=== PATIENT | female | born 1985 | race Two or more races ===

== ENCOUNTER 2017-05-13 21:10 | Inpatient (IN) | payer OTHER, MEDICAID ==
[~2017-05-13] VITALS: Ht 157.5 cm; Wt 83.9 kg
[2017-05-13] MEDS ORDERED: LACT. RINGERS/OXYTOCIN 20UNITS 1,000 ML IV SCH (21:18)
[2017-05-13] MEDS ORDERED: NALBUPHINE HCL 10 MG/1ml INJECTION IV PRN (21:30)
[2017-05-13] MEDS ORDERED: WITCH HAZEL-GLYCERIN PAD TOP PRN (21:30)
[2017-05-13] MEDS ORDERED: PHISODERM TOP SOLN 240ML BTL TOP PRN (21:30)
[2017-05-13] MEDS ORDERED: LIDOCAINE 2%HCL (LOCAL ANESTH.) INJ 20ML MDV IJ PRN (21:30)
[2017-05-13] MEDS ORDERED: DERMOPLAST 60ML BOTTLE TOP PRN (21:30)
[2017-05-13] MEDS ORDERED: METHYLERGONOVINE MALEATE 0.2 MG/ML AMP IM PRN (21:30)
[2017-05-13 22:38] LABS: Albumin 2.3 g/dL (3.4-5.0); BUN/Creatinine Ratio 16.1; Calcium 8.8 mg/dL (8.5-10.1); Potassium 3.8 mmol/L (3.5-5.1)
[2017-05-13 22:41] LABS: Bilirubin, Total 0.2 mg/dL (0.2-1.0); Total Protein 6.5 g/dL (6.4-8.2)
[2017-05-13 22:41] LABS: Alcohol, Urine < 3.0 mg/dL (0-5); Amphetamine Screen, Urine NEGATIVE (NEGATIVE); Barbiturate Scree,Urine NEGATIVE (NEGATIVE); Benzodiazephine Screen, Urine NEGATIVE (NEGATIVE); Cannabinoid Screen, Urine NEGATIVE (NEGATIVE); Cocaine Screen, Urine NEGATIVE (NEGATIVE); Opiate Scree,Urine NEGATIVE (NEGATIVE); Phencyclidine Screen, Urine NEGATIVE (NEGATIVE); Urine Bacteria MANY /hpf (None Seen); Urine Blood Negative /uL (Negative); Urine Mucus FEW (None Seen); Urine Specific Gravity 1.019 (1.001-1.035); Urine WBC 7 /hpf (0 - 5)
[2017-05-13 22:51] LABS: Basophils # (auto) 0.1 uL; Eosinophils # (auto) 0.1 uL; Mean Corpuscular Hemoglobin 25.6 pg (28.0-32.0); Mean Corpuscular Volume 78.2 fL (80.0-100.0)
[2017-05-13 22:53] LABS: Basophils % (auto) 0.4 % (0.0-2.0); Eosinophils % (auto) 0.8 % (0.0-7.0); Hematocrit 29.3 % (36.0-46.0); Hemoglobin 9.6 g/dL (12.2-16.2); Lymphocytes # (auto) 1.5 uL; Lymphocytes % (auto) 12.5 % (10.0-50.0); Mean Corpuscular Hgb Conc. 32.7 g/dL (32.0-36.0); Monocytes # (auto) 0.8 uL; Monocytes % (auto) 6.2 % (0.0-12.0); Neutrophils # (auto) 9.7 uL; Neutrophils % (auto) 80.1 % (37.0-80.0); Nucleated Red Blood Cells % 0.1 %; Platelet Count (auto) 303 10^3/uL (140-450); Red Blood Cells 3.74 10^6/uL (4.0-5.20); White Blood Cell 12.1 10^3/uL (4.4-10.8)
[2017-05-13] MEDS ORDERED: PREN-153 OR (23:03)
[2017-05-13 23:07] LABS: INR 0.91 (0.9-1.15); Partial Thromboplastin Time 27.5 sec (22.64-33.71); Prothrombin Time 9.9 sec (9.37-12.3)
[2017-05-14] MEDS ORDERED: ALUM & MAG HYDROX-SIMETH LIQ(MAALOX) 30 ML ONE (03:29)
[2017-05-14] MEDS ORDERED: ALUM & MAG HYDROX-SIMETH LIQ(MAALOX) 30 ML PO PRN (03:30)
[2017-05-14] MEDS ORDERED: PROMETHAZINE HCL 25 MG/ML 1ML ONE (05:37)
[2017-05-14] MEDS ORDERED: BUTORPHANOL TARTRATE 2 MG/1 ML VIAL ONE (05:37)
[2017-05-14] MEDS: LACTATED RINGER'S 1,000 ML IV SCH ×3 (06:37→21:18)
[2017-05-14] MEDS ORDERED: PROMETHAZINE HCL 25 MG/ML 1ML IV PRN (06:45)
[2017-05-14] MEDS ORDERED: LACT. RINGERS/OXYTOCIN 20UNITS 1,000 ML IV SCH (11:48)
[2017-05-14] MEDS ORDERED: TERBUTALINE SULFATE 1 MG/ML 1ML VIAL SC ONE (12:00)
[2017-05-14] MEDS ORDERED: ePHEDrine SULFATE 50 MG/ML AMP IV ONE (12:15)
[2017-05-14] MEDS ORDERED: fentaNYL W ROPIVACAINE 150 ML EPI SCH (12:15)
[2017-05-14] MEDS ORDERED: LIDOCAINE HCL 2 %PF INJ 10ML AMP IJ ONE (12:15)
[2017-05-14] MEDS ORDERED: NALOXONE HCL 0.4 MG/ML VIAL IV ONE (12:15)
[2017-05-14] MEDS ORDERED: fentaNYL CITRATE 100 MCG/2 ML VL IV ONE (12:15)
[2017-05-14] MEDS: IBUPROFEN 600 MG TAB PO PRN (20:30)
[2017-05-14 23:30] VITALS: BP 118/51
[2017-05-15] MEDS: IBUPROFEN 600 MG TAB PO PRN ×5 (01:00→23:30)
[2017-05-15 03:30] VITALS: BP 115/52
[2017-05-15] MEDS ORDERED: ACETAMINOPHEN 325 MG TAB PO ONE (04:54)
[2017-05-15] MEDS: LACTATED RINGER'S 1,000 ML IV SCH ×2 (04:55→13:18)
[2017-05-15] MEDS ORDERED: ACETAMINOPHEN 325 MG TAB PO PRN (05:00)
[2017-05-15 05:06] LABS: RPR Non Reactive (Non Reactive)
[2017-05-15 08:00] VITALS: BP 101/52
[2017-05-15] MEDS ORDERED: DOCUSATE CALCIUM 240 MG CAP PO SCH (10:00)
[2017-05-15 12:15] VITALS: BP 115/62
[2017-05-15 16:30] VITALS: BP 108/59
[2017-05-15 19:15] VITALS: BP 116/60
[2017-05-15 23:00] VITALS: BP 127/71
[2017-05-16 03:30] VITALS: BP 126/69
[2017-05-16 08:00] VITALS: BP 122/78
== END 2017-05-16 09:40 | disposition home or self-care (01) | DRG 775 ==
LOC: LDRP 21:10
PROVIDERS: ADMIT Specialist; ATTEND Specialist
PROC: 10E0XZZ Delivery of Products of Conception, External Approach (ICD-10-PCS; principal; 2017-05-14)
PROC: 10907ZC Drainage of Amniotic Fluid, Therapeutic from Products of Conception, Via Natural or Artificial Opening (ICD-10-PCS; 2017-05-14)
PROC: 0HQ9XZZ Repair Perineum Skin, External Approach (ICD-10-PCS; 2017-05-14)
PROC: 00HU33Z Insertion of Infusion Device into Spinal Canal, Percutaneous Approach (ICD-10-PCS; 2017-05-14)
PROC: 3E0R3BZ Introduction of Anesthetic Agent into Spinal Canal, Percutaneous Approach (ICD-10-PCS; 2017-05-14)
DX: O48.0 Post-term pregnancy (principal); O70.0 First degree perineal laceration during delivery; Z37.0 Single live birth; Z3A.40 40 weeks gestation of pregnancy
CPT/HCPCS: 36415; 59025; 59612; 62282; 80053; 80307; 81001; 85025; 85610; 85730; 86592; 86850; 86900; 86901; 94760; 96365; 96366; 96375; J2590; J3010

== ENCOUNTER 2017-08-28 19:02 | Emergency (ER) | payer MEDICAID, OTHER ==
[~2017-08-28] VITALS: Ht 165.1 cm; Wt 63.5 kg
[~2017-08-28 19:02] MED LIST: PREN-153 OR
[2017-08-28 19:05] VITALS: BP 134/72
== END 2017-08-28 19:40 | disposition left against medical advice (07) ==
LOC: EDBD 19:02 → ER 19:04
DX: S61.452A Open bite of left hand, initial encounter (principal); S61.451A Open bite of right hand, initial encounter; Z53.21 Procedure and treatment not carried out due to patient leaving prior to being seen by health care provider; W54.0XXA Bitten by dog, initial encounter; Y93.89 Activity, other specified; Y92.89 Other specified places as the place of occurrence of the external cause; Y99.8 Other external cause status

== ENCOUNTER 2023-05-05 07:12 | Emergency (ER) | payer MEDICAID ==
[~2023-05-05] VITALS: Ht 157.5 cm; Wt 79.0 kg
[~2023-05-05 07:12] MED LIST changes: -PREN-153 OR; +PREN1TAB71 OR
[2023-05-05] MEDS ORDERED: SODIUM CHLORIDE 0.9% 1,000 ML IVB ONE (07:30)
[2023-05-05 07:40] VITALS: TEMP 97.8
[2023-05-05 08:15] LABS: Basophils # (auto) 0.1 10 ^3/uL (0-0.2); Basophils % (auto) 0.6 % (0.0-2.0); Eosinophils # (auto) 0.2 10 ^3/uL (0-0.8); Eosinophils % (auto) 1.5 % (0.0-7.0); Hematocrit 36.7 % (36.0-46.0); Hemoglobin 12.2 g/dL (12.2-16.2); Lymphocytes # (auto) 1.5 10 ^3/uL (0.4-5.4); Lymphocytes % (auto) 14.5 % (10.0-50.0); Mean Corpuscular Hemoglobin 28.3 pg (28.0-32.0); Mean Corpuscular Hgb Conc. 33.3 g/dL (32.0-36.0); Monocytes # (auto) 0.5 10 ^3/uL (0-1.3); Monocytes % (auto) 4.5 % (0.0-12.0); Neutrophils # (auto) 8.1 10 ^3/uL (1.6-8.6); Neutrophils % (auto) 78.9 % (37.0-80.0); Red Blood Cells 4.32 10^6/uL (4.0-5.20); Red Cell Distribution Width 13.9 % (11.8-14.3); White Blood Cell 10.2 10^3/uL (4.4-10.8)
[2023-05-05] MEDS ORDERED: ONDANSETRON HCL 4 MG/2 ML VIAL IV ONE (08:15)
[2023-05-05] MEDS ORDERED: MORPHINE SULFATE 4 MG/ML SYR/VIAL IV ONE (08:15)
[2023-05-05 08:16] VITALS: PULSE 84; RESP 20; O2SAT 98
[2023-05-05 08:34] LABS: Partial Thromboplastin Time 30.4 SEC (24.5-34.5); Prothrombin Time 10.5 sec (9.3-11.8)
[2023-05-05 08:45] LABS: Alanine Aminotransferase 17 U/L (7-40); Albumin 3.9 g/dL (3.2-4.8); Alkaline Phosphatase 90 U/L (46-116); Anion Gap 8 (5-15); Aspartate Aminotransferase 15 U/L (13-40); BUN/Creatinine Ratio 11.9 (10.0-20.0); Bilirubin, Total 0.3 mg/dL (0.2-1.0); Blood Urea Nitrogen 7 mg/dL (9-23); Calcium 9.1 mg/dL (8.5-10.1); Carbon Dioxide 23 mmol/L (20-30); Chloride 106 mmol/L (98-107); Glucose 108 mg/dL (74-106); Potassium 3.8 mmol/L (3.5-5.1); Sodium 137 mmol/L (136-145); Total Protein 6.3 g/dL (5.7-8.2)
[2023-05-05 10:00] VITALS: BP 104/71; PULSE 77; RESP 17; O2SAT 98
[2023-05-05] MEDS ORDERED: SODIUM CHLORIDE 0.9% 1,000 ML IV ONE (11:15)
[2023-05-05] MEDS ORDERED: LACT. RINGERS/OXYTOCIN 20UNITS 1,000 ML IV ONE (11:45)
[2023-05-05] MEDS ORDERED: ZOFR4T PO (12:10)
== END 2023-05-05 12:02 | disposition left against medical advice (07) ==
LOC: ER 07:12 → EDBD 07:12 → EDUNIT# 07:12 → ER 12:02
DX: O03.9 Complete or unspecified spontaneous abortion without complication (principal); R10.2 Pelvic and perineal pain; Z3A.17 17 weeks gestation of pregnancy
CPT/HCPCS: 36415; 76805; 80053; 84702; 85025; 85610; 85730; 86850; 86900; 86901; 96361; 96374; 96375; 99285; J2270; J2405; J7030

== ENCOUNTER 2023-05-12 06:23 | Inpatient (IN) | payer MEDICAID ==
[~2023-05-12] VITALS: Ht 154.9 cm; Wt 84.5 kg
[2023-05-12] VITALS (11 sets, daily range): BP systolic 95–106; BP diastolic 49–72; PULSE 82–111; RESP 12–20; TEMP 97.5–98; O2SAT 96–100
[~2023-05-12 06:23] MED LIST changes: +ZOFR4T PO
[2023-05-12] MEDS ORDERED: cefTRIAXone 1GM/50ML D5W 50 ML IV ONE (08:30)
[2023-05-12 08:36] LABS: Eosinophils # (auto) 0 10 ^3/uL (0-0.8); Eosinophils % (auto) 0.3 % (0.0-7.0); Hemoglobin 7.8 g/dL (12.2-16.2); Monocytes # (auto) 0.5 10 ^3/uL (0-1.3)
[2023-05-12 08:38] LABS: Basophils # (auto) 0.1 10 ^3/uL (0-0.2); Basophils % (auto) 0.5 % (0.0-2.0); Hematocrit 23.7 % (36.0-46.0); Lymphocytes # (auto) 0.9 10 ^3/uL (0.4-5.4); Mean Corpuscular Hemoglobin 27.5 pg (28.0-32.0); Mean Corpuscular Volume 83.3 fL (80.0-100.0); Monocytes % (auto) 4.5 % (0.0-12.0); Neutrophils # (auto) 10.2 10 ^3/uL (1.6-8.6); Neutrophils % (auto) 86.7 % (37.0-80.0); Red Blood Cells 2.84 10^6/uL (4.0-5.20); Red Cell Distribution Width 13.1 % (11.8-14.3); White Blood Cell 11.8 10^3/uL (4.4-10.8)
[2023-05-12 09:00] LABS: Chloride 106 mmol/L (98-107); Potassium 4.1 mmol/L (3.5-5.1); Sodium 138 mmol/L (136-145)
[2023-05-12 09:01] LABS: Anion Gap 12 (5-15); Calcium 8.8 mg/dL (8.5-10.1); Carbon Dioxide 20 mmol/L (20-30)
[2023-05-12 09:06] LABS: BUN/Creatinine Ratio 17.1 (10.0-20.0); Blood Urea Nitrogen 12 mg/dL (9-23); Glucose 108 mg/dL (74-106)
[2023-05-12] MEDS ORDERED: IBUPROFEN 600 MG TAB PO ONE (09:30)
[2023-05-12] MEDS ORDERED: ONDANSETRON HCL 4 MG/2 ML VIAL IV ONE (09:30)
[2023-05-12] MEDS ORDERED: ONDANSETRON HCL 4 MG/2 ML VIAL IV PRN ×2 (10:45→12:45)
[2023-05-12] MEDS: LACTATED RINGER'S 1,000 ML IV SCH (10:45)
[2023-05-12] MEDS ORDERED: NITROGLYCERIN 0.4 MG SL TAB SL PRN (10:45)
[2023-05-12] MEDS ORDERED: ACETAMINOPHEN 500 MG TAB PO PRN (10:45)
[2023-05-12] MEDS: PIPERACILLIN-TAZO 4.5GM 100 ML IV SCH ×2 (10:45→20:10)
[2023-05-12] MEDS ORDERED: MORPHINE SULFATE INJ 2 MG/ml SYRG IV PRN (10:45)
[2023-05-12] MEDS ORDERED: KETOROLAC TROMETH 30 MG/ML 1ML VIAL IV PRN (10:45)
[2023-05-12] MEDS ORDERED: fentaNYL CITRATE 100 MCG/2 ML VL ONE (11:49)
[2023-05-12] MEDS ORDERED: MEPERIDINE HCL (25 MG/ML) 1ML VIAL ONE ×2 (11:49→12:11)
[2023-05-12] MEDS ORDERED: MIDAZOLAM HCL 2MG/2ML 2ml VIAL (1mg/ml) ONE (11:49)
[2023-05-12] MEDS ORDERED: KETOROLAC TROMETH 30 MG/ML 1ML VIAL ONE (11:50)
[2023-05-12] MEDS ORDERED: LIDOCAINE 2% (LOCAL ANESTH.) PF 5ml SDV ONE (11:50)
[2023-05-12] MEDS ORDERED: DexAMETHasone SOD PHOS 10MG/1ML VIAL INJ ONE (11:50)
[2023-05-12] MEDS ORDERED: ONDANSETRON HCL 4 MG/2 ML VIAL ONE (11:50)
[2023-05-12] MEDS ORDERED: GLYCOPYRROLATE 0.2 MG/ML 1ML VIAL ONE (11:50)
[2023-05-12] MEDS ORDERED: HYDROmorphone HCL 2 MG/ML VL/or syr IV PRN (12:45)
[2023-05-12 20:32] LABS: Hematocrit 25.7 % (36.0-46.0); Hemoglobin 8.3 g/dL (12.2-16.2)
[2023-05-12] MEDS ORDERED: MELATONIN 5 MG TAB PO ONE (22:00)
[2023-05-12] MEDS ORDERED: FERR30CA PO (22:33)
[2023-05-12] MEDS ORDERED: DOXY-111 PO ×2 (22:33)
[2023-05-12] MEDS ORDERED: METR-344 PO ×2 (22:33)
[2023-05-12] MEDS ORDERED: IBUP-1455 PO (22:33)
[2023-05-13] VITALS (12 sets, daily range): BP systolic 84–129; BP diastolic 36–80; PULSE 51–79; RESP 17–21; TEMP 97.5–98.4; O2SAT 94–99
[2023-05-13] MEDS: PIPERACILLIN-TAZO 4.5GM 100 ML IV SCH ×4 (01:27→21:02)
[2023-05-13] MEDS ORDERED: DOCUSATE SOD 100 MG CAP PO PRN (05:30)
[2023-05-13] MEDS: LACTATED RINGER'S 1,000 ML IV SCH ×3 (06:05→21:06)
[2023-05-13 07:39] LABS: Anion Gap 9 (5-15); Carbon Dioxide 20 mmol/L (20-30); Chloride 109 mmol/L (98-107); Potassium 3.9 mmol/L (3.5-5.1); Sodium 138 mmol/L (136-145)
[2023-05-13 07:42] LABS: Basophils # (auto) 0 10 ^3/uL (0-0.2); Basophils % (auto) 0.2 % (0.0-2.0); Eosinophils # (auto) 0 10 ^3/uL (0-0.8); Hematocrit 28.3 % (36.0-46.0); Hemoglobin 9.2 g/dL (12.2-16.2); Lymphocytes # (auto) 0.7 10 ^3/uL (0.4-5.4); Lymphocytes % (auto) 4.5 % (10.0-50.0); Mean Corpuscular Hemoglobin 28.5 pg (28.0-32.0); Mean Corpuscular Hgb Conc. 32.4 g/dL (32.0-36.0); Mean Corpuscular Volume 87.9 fL (80.0-100.0); Monocytes # (auto) 0.5 10 ^3/uL (0-1.3); Monocytes % (auto) 2.9 % (0.0-12.0); Neutrophils # (auto) 14.5 10 ^3/uL (1.6-8.6); Neutrophils % (auto) 92.4 % (37.0-80.0); Nucleated Red Blood Cells % 0.1 %; Red Blood Cells 3.22 10^6/uL (4.0-5.20); Red Cell Distribution Width 14.3 % (11.8-14.3); White Blood Cell 15.7 10^3/uL (4.4-10.8)
[2023-05-13 07:45] LABS: BUN/Creatinine Ratio 11.9 (10.0-20.0); Blood Urea Nitrogen 8 mg/dL (9-23); Glucose 144 mg/dL (74-106)
[2023-05-13] MEDS: FERROUS SULFATE 325mg EC TAB PO SCH ×2 (08:37→18:39)
[2023-05-13] MEDS ORDERED: VANCOMYCIN PER PHARMACY 0 MG IV SCH (14:15)
[2023-05-13] MEDS ORDERED: IOHEXOL 350 MG/ML 100ML IJ ONE (14:16)
[2023-05-13] MEDS: HYDROcodone-ACET 5/325MG TAB PO PRN (18:52)
[2023-05-13] MEDS: VANCOMYCIN 1GM/200ML 200 ML IV SCH (23:20)
[2023-05-13] MEDS ORDERED: TEMAZEPAM 15 MG CAP PO ONE (23:30)
[2023-05-14] VITALS (10 sets, daily range): BP systolic 91–138; BP diastolic 57–90; PULSE 54–75; RESP 16–26; TEMP 97.7–98.4; O2SAT 92–99
[2023-05-14] MEDS: LACTATED RINGER'S 1,000 ML IV SCH (02:51)
[2023-05-14] MEDS: PIPERACILLIN-TAZO 4.5GM 100 ML IV SCH ×2 (03:55→11:42)
[2023-05-14] MEDS ORDERED: ALBUTEROL SULF 2.5 MG/0.5ML(0.5%) NEB SOLN NEB PRN (06:15)
[2023-05-14 07:32] LABS: Chloride 108 mmol/L (98-107); Potassium 4.1 mmol/L (3.5-5.1); Sodium 140 mmol/L (136-145)
[2023-05-14 07:33] LABS: Anion Gap 7 (5-15); Carbon Dioxide 25 mmol/L (20-30)
[2023-05-14 07:34] LABS: Calcium 8.3 mg/dL (8.7-10.4)
[2023-05-14 07:35] LABS: Hemoglobin 9.8 g/dL (12.2-16.2); Mean Corpuscular Hemoglobin 28.7 pg (28.0-32.0); Mean Corpuscular Hgb Conc. 32.8 g/dL (32.0-36.0); Mean Corpuscular Volume 87.5 fL (80.0-100.0); Red Blood Cells 3.42 10^6/uL (4.0-5.20); Red Cell Distribution Width 14.6 % (11.8-14.3); White Blood Cell 16.7 10^3/uL (4.4-10.8)
[2023-05-14 07:38] LABS: Glucose 85 mg/dL (74-106)
[2023-05-14 07:50] LABS: Basophils % (manual) 0 (0.0-2.0); Blast Cells 0; Eosinophils % (manual) 0 (0-7); Promyelocytes % 0; Reactive Lymphocytes 0
[2023-05-14] MEDS: FERROUS SULFATE 325mg EC TAB PO SCH ×2 (08:16→17:30)
[2023-05-14] MEDS: VANCOMYCIN 1GM/200ML 200 ML IV SCH (08:17)
[2023-05-14 08:32] LABS: BUN/Creatinine Ratio 21.6 (10.0-20.0); Blood Urea Nitrogen 16 mg/dL (9-23)
[2023-05-14] MEDS: HYDROcodone-ACET 5/325MG TAB PO PRN ×2 (08:32→16:15)
[2023-05-14] MEDS: PANTOPRAZOLE 40 MG TAB PO SCH (10:18)
[2023-05-14] MEDS ORDERED: FUROSEMIDE 20 MG/2 ML VIAL IV ONE (10:45)
[2023-05-14 11:53] LABS: Urine Bacteria NONE SEEN /hpf (None Seen); Urine Blood 3+ /uL (Negative); Urine Clarity Clear (Clear); Urine Color Colorless (Yellow); Urine Protein, UAD TRACE (Negative); Urine Specific Gravity 1.021 (1.001-1.035); Urine Urobilinogen Normal (Negative); Urine WBC 7 /hpf (0 - 5)
[2023-05-14 13:09] LABS: Band Neutrophils % (manual) 1; Lymphocytes % (manual) 12 (10.0-50.0); Metamyelocytes % 1; Monocytes % (manual) 9 (0-12); Myelocytes % 1
[2023-05-14 13:10] LABS: Platelet Estimate Adequate
[2023-05-14] MEDS ORDERED: CEFTRIAXONE SODIUM 2 GM in D5W 5% 100 ML IV ONE (14:30)
[2023-05-14] MEDS ORDERED: CLINDAMYCIN 900MG IV 50 ML IV ONE (14:30)
[2023-05-14] MEDS: CLINDAMYCIN 900MG IV 50 ML IV SCH (21:48)
[2023-05-15] MEDS: CLINDAMYCIN 900MG IV 50 ML IV SCH ×2 (04:51→14:10)
[2023-05-15] MEDS: HYDROcodone-ACET 5/325MG TAB PO PRN (04:51)
[2023-05-15 05:00] VITALS: BP 117/61; PULSE 64; RESP 19; TEMP 98.5; O2SAT 91
[2023-05-15 05:46] LABS: Hematocrit 28.7 % (36.0-46.0); Hemoglobin 9.5 g/dL (12.2-16.2); Mean Corpuscular Hemoglobin 28.7 pg (28.0-32.0); Mean Corpuscular Hgb Conc. 33.3 g/dL (32.0-36.0); Mean Corpuscular Volume 86.3 fL (80.0-100.0); Red Blood Cells 3.33 10^6/uL (4.0-5.20); Red Cell Distribution Width 14.6 % (11.8-14.3)
[2023-05-15 05:56] LABS: Anion Gap 7 (5-15); Calcium 8.5 mg/dL (8.7-10.4); Carbon Dioxide 29 mmol/L (20-30); Chloride 104 mmol/L (98-107); Potassium 3.7 mmol/L (3.5-5.1); Sodium 140 mmol/L (136-145)
[2023-05-15 06:02] LABS: BUN/Creatinine Ratio 15.1 (10.0-20.0); Blood Urea Nitrogen 13 mg/dL (9-23); Glucose 90 mg/dL (74-106)
[2023-05-15 06:10] LABS: Basophils % (manual) 0 (0.0-2.0); Blast Cells 0; Myelocytes % 0; Promyelocytes % 0; Reactive Lymphocytes 0
[2023-05-15 07:00] VITALS: O2SAT 96
[2023-05-15 08:00] VITALS: PULSE 64; RESP 19
[2023-05-15 08:29] LABS: Band Neutrophils % (manual) 8; Eosinophils % (manual) 3 (0-7); Lymphocytes % (manual) 14 (10.0-50.0); Metamyelocytes % 2; Monocytes % (manual) 4 (0-12)
[2023-05-15 08:30] LABS: Platelet Estimate Adequate
[2023-05-15] MEDS: FERROUS SULFATE 325mg EC TAB PO SCH (08:46)
[2023-05-15] MEDS: PANTOPRAZOLE 40 MG TAB PO SCH (08:46)
[2023-05-15 09:00] VITALS: BP 119/66; PULSE 61; RESP 18; TEMP 97.9; O2SAT 92
[2023-05-15] MEDS ORDERED: CEFTRIAXONE SODIUM 2 GM in D5W 5% 100 ML IV SCH (10:00)
[2023-05-15] MEDS ORDERED: CLIN300C70 PO (10:09)
[2023-05-15] MEDS ORDERED: [UNRECOGNIZED DRUG - CODE] PO (10:09)
[2023-05-15] MEDS ORDERED: CEPH500T PO (10:09)
[2023-05-15] MEDS ORDERED: SACC1CAP3 PO (10:40)
[2023-05-15 13:00] VITALS: BP 118/74; PULSE 69; RESP 18; TEMP 98.4; O2SAT 95
[2023-05-15 15:09] VITALS: BP 103/64; PULSE 92; RESP 16; TEMP 36.9; O2SAT 99
[2023-05-15 23:07] LABS: Chlamydia Trachomatis, NAA Negative (Negative); Neisseria gonorrhoeae, NAA Negative (Negative)
== END 2023-05-15 16:09 | disposition home or self-care (01) | DRG 543 ==
LOC: ER 06:23 → EDUNIT# 06:23 → EDBD 06:23 → OVERFLOW 10:41 → CENTRAL 13:42 → TELE-CENTR 05-14 09:20
PROVIDERS: ADMIT Obstetrics & Gynecology; ATTEND Obstetrics & Gynecology
PROC: 30233N1 Transfusion of Nonautologous Red Blood Cells into Peripheral Vein, Percutaneous Approach (ICD-10-PCS; 2023-05-12)
PROC: 10D17ZZ Extraction of Products of Conception, Retained, Via Natural or Artificial Opening (ICD-10-PCS; principal; 2023-05-12 11:56)
DX: O03.37 Sepsis following incomplete spontaneous abortion (principal); J96.01 Acute respiratory failure with hypoxia; J81.0 Acute pulmonary edema; R78.81 Bacteremia; D62 Acute posthemorrhagic anemia; E66.9 Obesity, unspecified; B96.89 Other specified bacterial agents as the cause of diseases classified elsewhere; E87.70 Fluid overload, unspecified; J81.1 Chronic pulmonary edema; O03.33 Metabolic disorder following incomplete spontaneous abortion
CPT/HCPCS: 36415; 71045; 71275; 76856; 80048; 80202; 81001; 83605; 83615; 84702; 85007; 85014; 85018; 85025; 85027; 86850; 86900; 86901; 86920; 87040; 87077; 87086; 87186; 93306; 94640; 96365; G0378; J0696; J1100; J1885; J2001; J2250; J2405; J2543; J3490; J7060